=== PATIENT | female | born 1980 | race Caucasian/White ===

== ENCOUNTER 2016-12-30 12:47 | Emergency (ER) | payer OTHER ==
[~2016-12-30] VITALS: Ht 157.5 cm; Wt 69.8 kg
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
[~2016-12-30 12:47] MED LIST: BACTRIM DS TABL1 TA1 PO; KEFLEX500 MG PO; LORTAB 7.51 TAB 7.5/ PO; NAPROXEN500 M1 PO; PHENERGAN25 MG PO; VICODIN 5/1 TAB 5/50 PO; XYLOCAINE20 ML 2% V EXT
== END 2016-12-30 16:20 | disposition home or self-care (01) ==
LOC: CED 12:47 → CFTX 13:58 → CED 13:58
DX: S09.90XA Unspecified injury of head, initial encounter (principal); S13.4XXA Sprain of ligaments of cervical spine, initial encounter; S46.912A Strain of unspecified muscle, fascia and tendon at shoulder and upper arm level, left arm, initial encounter; S39.012A Strain of muscle, fascia and tendon of lower back, initial encounter; J44.9 Chronic obstructive pulmonary disease, unspecified; F41.9 Anxiety disorder, unspecified; F17.210 Nicotine dependence, cigarettes, uncomplicated; V43.52XA Car driver injured in collision with other type car in traffic accident, initial encounter
CPT/HCPCS: 70450; 72100; 72125; 73030; 84703; 99284